=== PATIENT | female | born 1950 | race Caucasian/White ===

== ENCOUNTER 2017-07-17 08:27 | Emergency (ER) | payer OTHER, MEDICARE ==
[~2017-07-17] VITALS: Ht 167.6 cm; Wt 67.1 kg
[2017-07-17] MEDS ORDERED: IV NORMAL SALINE 1000ML BAG 1,000 ML IV SCH (09:06)
[2017-07-17] MEDS ORDERED: OXYMETAZOLINE 0.05% NASAL SPRAY 30ML BOTTLE. NS ONE (09:15)
--- NOTE | 2017-07-17 09:21 | PHYS DOC ---
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 She got up to walk a short distance and she suddenly felt like she had to hold onto the [place]udson. She felt off balance and describes a vertigo-type sensation. She did not have any chest pain, denies shortness of air, she states her heart was not racing. She did have a "slight headache" at the time and she has just a little bit of a headache on top of her head at this time but it is going away. A nursing home aide checked her blood pressure and it was 157/78. Patient states usually her blood pressure is perfectly normal. They also stated that she was red and flushed at the time. Patient also states that yesterday "both arms were tingling". Patient states she had vertigo once before related to an ear condition. She has had some pain, discomfort, decreased hearing, and congestion in her right ear for about a month. She saw her PCP and her ear was flushed, they put her on an antibiotic. She also took Sudafed for a few days which didn't help. She is supposed to follow up with an ENT doctor. She denies recent seasonal allergy symptoms, she said the right side of her nose does run once in a while. She does have some pain and discomfort anterior to her right ear. She does take Tylenol for this occasionally but has not taken any today. Patient is diabetic. She recently was changed from Lantus to Tresiba and has been experiencing some poor control related to that. Her fasting blood sugar this morning was 243. She typically takes Tresiba 28 units at night that she took only 25 last night because she has been having some nighttime lows. Patient typically takes regular insulin 8 units with breakfast, 8-10 units with lunch and 10-12 units with dinner, depending on her carbs. This morning she did not take her morning insulin because when she works, it's hard for her to know whether she will get her lunch on time, and if she doesn't, her blood sugar will get low so she skipped her morning insulin dose. Denies history of [place] or CVA. Review of Systems Review of Systems Constitutional: Denies fever or chills [] HENT: As in history of present illness Respiratory: Denies cough or shortness of breath [] Cardiovascular: Denies chest pain GI: Denies abdominal pain, nausea, vomiting, bloody stools or diarrhea [] Musculoskeletal: Denies back pain or joint pain [] Integument: Denies rash or skin lesions [] Neurologic: As in history of present illness, she had a "slight headache" earlier this morning when the symptoms were bothering her, it is about gone now. She denies focal weakness. Current Medications Current Medications Current Medications Medications (Trade) Dose Ordered Sig/Quinn Start Time Stop Time Status Last Admin Dose Admin Meclizine HCl (Antivert) 25 mg 1X ONCE 07/17/17 10:15 07/17/17 10:16 DC 07/17/17 10:12 25 MG Oxymetazoline HCl (Afrin) 2 spray 1X ONCE 07/17/17 09:15 07/17/17 09:16 DC 07/17/17 09:29 2 SPRAY Sodium Chloride 1,000 ml @ 1,000 mls/hr Q1H 07/17/17 09:06 07/17/17 10:05 DC 07/17/17 09:16 1,000 MLS/HR Allergies Allergies Allergies Coded Allergies Type Severity Reaction Last Updated Verified codeine Allergy Intermediate Nausea, "RPTS EXTREME CRAMPING" 04/25/14 No Physical Exam Physical Exam Constitutional: Well developed, well nourished, no acute distress, non-toxic appearance. Alert, mentating normally, warm and dry. Blood pressure 183/82. HENT: Normocephalic, atraumatic, bilateral external ears normal, nose normal. Right ear: External ear canal is small. There is a normal amount of cerumen present. No redness, swelling, or abnormality of the ear canal. I am able to visualize only a small portion of the TM due to small ear canals and cerumen. That portion appears normal without redness. Eyes: conjunctiva normal, no discharge. [] Neck: Normal range of motion, no stridor. [] Cardiovascular:Heart rate regular rhythm, no murmur [] Lungs & Thorax: Bilateral breath sounds clear to auscultation [] Skin: Warm, dry, no erythema, no rash. [] Extremities: No tenderness, no cyanosis, no clubbing, ROM intact, no edema. [] Neurologic: Alert and oriented X 3, normal motor function, no focal deficits noted. Patient is keenly alert. Fully appropriate. Good historian. Normal speech and normal speech pattern. No facial asymmetry. Lkodmu-[id number] nose normal bilaterally. Heel to tavarez normal bilaterally. Current Patient Data Vital Signs Vital Signs Date Time Temp Pulse Resp B/P (MAP) Pulse Ox O2 Delivery O2 Flow Rate FiO2 07/17/17 10:54 77 16 174/81 (112) Room Air 07/17/17 10:13 97 07/17/17 08:59 98.2 98.2 Lab Values Laboratory Tests Test 07/17/17 08:44 07/17/17 09:15 Glucose (Fingerstick) 332 mg/dL (70-99) H White Blood Count 7.2 x10^3/uL (4.0-11.0) Red Blood Count 4.20 x10^6/uL (3.50-5.40) Hemoglobin 12.9 g/dL (12.0-15.5) Hematocrit 39.9 % (36.0-47.0) Mean Corpuscular Volume 95 fL (79-100) Mean Corpuscular Hemoglobin 31 pg (25-35) Mean Corpuscular Hemoglobin Concent 32 g/dL (31-37) Red Cell Distribution Width 14.0 % (11.5-14.5) Platelet Count 257 x10^3/uL (140-400) Neutrophils (%) (Auto) 62 % (31-73) Lymphocytes (%) (Auto) 27 % (24-48) Monocytes (%) (Auto) 8 % (0-9) Eosinophils (%) (Auto) 2 % (0-3) Basophils (%) (Auto) 1 % (0-3) Neutrophils # (Auto) 4.4 x10^3uL (1.8-7.7) Lymphocytes # (Auto) 2.0 x10^3/uL (1.0-4.8) Monocytes # (Auto) 0.6 x10^3/uL (0.0-1.1) Eosinophils # (Auto) 0.2 x10^3/uL (0.0-0.7) Basophils # (Auto) 0.0 x10^3/uL (0.0-0.2) Sodium Level 137 mmol/L (136-145) Potassium Level 4.4 mmol/L (3.5-5.1) Chloride Level 101 mmol/L (98-107) Carbon Dioxide Level 27 mmol/L (21-32) Anion Gap 9 (6-14) Blood Urea Nitrogen 14 mg/dL (7-20) Creatinine 0.6 mg/dL (0.6-1.0) Estimated GFR (Cockcroft-Gault) 100.3 BUN/Creatinine Ratio 23 (6-20) H Glucose Level 347 mg/dL (70-99) H Calcium Level 9.7 mg/dL (8.5-10.1) Total Bilirubin 0.4 mg/dL (0.2-1.0) Aspartate Amino Transferase (AST) 19 U/L (15-37) Alanine Aminotransferase (ALT) 24 U/L (14-59) Alkaline Phosphatase 141 U/L (46-116) H Total Protein 7.2 g/dL (6.4-8.2) Albumin 3.8 g/dL (3.4-5.0) Albumin/Globulin Ratio 1.1 (1.0-1.7) Laboratory Tests 07/17/17 09:15 Laboratory Tests 07/17/17 09:15 EKG EKG 12-lead EKG read by me. Sinus rhythm. Heart rate 78. There are no acute ST or T wave changes indicative of ischemia or infarction. No STEMI. Normal EKG. 08 44[] Radiology/Procedures Radiology/Procedures [] Course & Med Decision Making Course & Med Decision Making Pertinent Labs and Imaging studies reviewed. (See chart for details) 67-year-old female who works here at [employer] presents to the ED with what sounds like an episode of vertigo. There was initial concern about blood pressure and could this be cardiac. I believe her symptoms sound like peripheral vertigo. I don't believe she is having a CVA. She has no headache. She has no chronic hypertension. Her finger to nose and heel to tavarez testing are normal. She is very alert, appropriate, with normal speech. She has in fact been having some right middle ear complaints. I suspect that she has labyrinthine vertigo. We will treat her with decongestant nasal spray today to see if that makes any difference. She has ENT follow-up planned. However, she is noted to have blood sugar over 300 on her Accu-Chek. For that, we will check some labs and give her a liter of fluids. She is agreeable to that plan. Patient rested comfortably and uneventfully in the ED and got a liter of IV fluids. She remained vertiginous and was given a dose of by mouth meclizine. We discussed use of meclizine at home. The patient did get up to the bathroom with minimal assistance but she still felt dizzy and unsteady. She will be driven home by her . See Instructions for plan. [] Dragon Disclaimer Dragon Disclaimer This electronic medical record was generated, in whole or in part, using a voice recognition dictation system. Departure Departure Impression: Primary Impression: Vertigo, labyrinthine Additional Impression: Hyperglycemia due to type 2 diabetes mellitus Disposition: HOME, SELF-CARE Condition: STABLE Referrals: DARCY NAGEL MD (PCP) Patient Instructions: Vertigo, [id number] Additional Instructions: I believe your symptoms today are vertigo, and probably related to the right ear problems you have had going on. For vertigo, take meclizine one half to one every 6 hours as needed. This may be sedating, do not take when you're going to work or drive. For congestion that may be contributing to the ear problems and vertigo, I recommend that you use the decongestant nasal spray in both nostrils every morning, do not use at bedtime because if you use it around the clock it can cause congestion when you stop using it and also bedtime use can cause you to not be able to sleep. Also, purchase [id number] Flonase nasal steroid spray and use as directed. Use in both nostrils. This may help with inflammation and swelling up inside your nose and sinuses that contributes to problems with your eustachian tube and ear. Scripts Meclizine Hcl (MECLIZINE HCL) 25 Mg Tablet 1 TAB PO PRN TID for vertigo, #30 TAB Prov: GORDO GONSALES MD 07/17/17 Problem Qualifiers GORDO GONSALES MD Jul 17, 2017 09:21
[2017-07-17 09:25] LABS: BASO % 1 % (0-3); EOS % 2 % (0-3); HEMATOCRIT 39.9 % (36.0-47.0); HEMOGLOBIN 12.9 g/dL (12.0-15.5); LYMPH % 27 % (24-48); MEAN CORPUSCULAR HEMOGLOBIN 31 pg (25-35); MEAN CORPUSCULAR HGB CONC 32 g/dL (31-37); MEAN CORPUSCULAR VOLUME 95 fL (79-100); MONO % 8 % (0-9); NEUT % 62 % (31-73); PLATELET COUNT 257 x10^3/uL (140-400); WHITE BLOOD COUNT 7.2 x10^3/uL (4.0-11.0)
--- NOTE | 2017-07-17 09:25 | EKG ---
[facility] [address] [place] [address] Test Date: 2017-07-17 Test Time: 08:44:35 Pat Name: NAYAN MCLEAN Department: Room: Gender: F Group Counselor: : 1950 Requested By: GORDO GONSALES Order Number: [id number] Reading MD: Measurements Intervals [place] Rate: 78 P: 74 DC: 166 QRS: -23 QRSD: 86 T: 56 QT: 374 QTc: 430 Interpretive Statements SINUS RHYTHM LEFT ATRIAL ABNORMALITY LEFTWARD AXIS S1,S2,S3 PATTERN QRS(T) CONTOUR ABNORMALITY CONSISTENT WITH ANTEROSEPTAL INFARCT AGE UNDETERMINED RI6.01 Unconfirmed report No previous ECG available for comparison
[2017-07-17 09:33] LABS: CALCIUM 9.7 mg/dL (8.5-10.1); CREATININE 0.6 mg/dL (0.6-1.0); GFR 100.3; POTASSIUM 4.4 mmol/L (3.5-5.1)
[2017-07-17 09:36] LABS: ALBUMIN 3.8 g/dL (3.4-5.0); ALBUMIN/GLOBULIN RATIO 1.1 (1.0-1.7); TOTAL BILIRUBIN 0.4 mg/dL (0.2-1.0); TOTAL PROTEIN 7.2 g/dL (6.4-8.2)
[2017-07-17] MEDS ORDERED: MECLIZINE HCL 12.5 MG TABLET. PO ONE (10:15)
[2017-07-17] MEDS ORDERED: MECL25TA3 PO (10:50)
[2017-07-17 10:54] VITALS: BP 174/81
== END 2017-07-17 10:54 | disposition home or self-care (01) ==
LOC: ER 08:27
DX: H81.01 Meniere's disease, right ear (principal); E11.65 Type 2 diabetes mellitus with hyperglycemia; E11.40 Type 2 diabetes mellitus with diabetic neuropathy, unspecified; K21.9 Gastro-esophageal reflux disease without esophagitis; Z79.4 Long term (current) use of insulin; Z88.5 Allergy status to narcotic agent
CPT/HCPCS: 36415; 80053; 82962; 85025; 93005; 96360; 99285; J7030; J8597

== ENCOUNTER 2018-05-08 09:52 | Day surgery (SDC) | payer OTHER ==
[2018-05-08] MEDS: IV RINGERS,LACTATED 1000ML 1,000 ML IV (07:00)
[~2018-05-08 09:52] MED LIST: LIDOCAINE 1% PF 2 ML VIAL. ID; ONDANSETRON PF 4 MG/2 ML VIAL. IV; PROCHLORPERAZINE 10 MG/2 ML VIAL. IV; fentaNYL PF VIAL 100 MCG/2 ML VIAL IV
[2018-05-08 10:29] LABS: POC GLUCOSE 336 mg/dL (70-99)
[2018-05-08] MEDS: PROPARACAINE 0.5% OPHTH SOLUTION 15ML BOTTLE. OD (10:40)
[2018-05-08] MEDS: PHENYLEPHRINE 10% OPHTH SOLUTION 5ML BOTTLE. OD ×3 (10:41→10:55)
[2018-05-08] MEDS: CYCLOPENTOLATE 1% OPTH SOLUTION 2ML BOTTLE. OD ×3 (10:42→10:55)
[2018-05-08] MEDS: CIPROFLOXACIN 0.3% OPHTH SOLUTION 5ML BOTTLE. OD (10:43)
[2018-05-08] MEDS: INSULIN ASPART 100 UNIT/ML 10ML VIAL. SQ (10:55)
[2018-05-08] MEDS: LIDOCAINE 2% JELLY 6ML IN APPLICATOR. MM ×2 (10:56→12:27)
[2018-05-08] MEDS ORDERED: MIDAZOLAM HCL/PF 2 MG/2 ML VIAL. (11:10)
[2018-05-08] MEDS: EPINEPHRINE IRR (11:42)
[2018-05-08] MEDS: LIDOCAINE 1% IRR (11:42)
[2018-05-08] MEDS: BUPIVACAINE MPF 0.75% IRR (11:42)
[2018-05-08] MEDS ORDERED: CHONDROITIN-SOD-HYALURONATE 0.5 ML DISP.SYRIN. ×2 (11:42→13:39)
[2018-05-08] MEDS: [UNRECOGNIZED DRUG - OTHER] IRR (11:42)
[2018-05-08 11:49] LABS: POC GLUCOSE 266 mg/dL (70-99)
[2018-05-08] MEDS: CHONDROIT-SOD-HYALURONATE KIT. (11:50)
[2018-05-08] MEDS: CHONDROITIN-SOD-HYALURONATE 0.5 ML DISP.SYRIN. (11:51)
[2018-05-08] MEDS: NEO/POLYMYX/DEXAMETH OPHTH OINTMENT 3.5GM TUBE. (12:37)
[2018-05-08] MEDS: BALANCED SALT IRRIG OPHTH SOLN 15 ML BOTTLE. ×2 (12:43→12:44)
[2018-05-08] MEDS: ACETYLCHOLINE CHLORIDE 1:100 20 MG/2 ML INTRAOCULAR KIT. (13:01)
[2018-05-08 13:31] LABS: POC GLUCOSE 117 mg/dL (70-99)
[2018-05-08] MEDS: fentaNYL PF VIAL 100 MCG/2 ML VIAL IV (13:33)
[2018-05-08] MEDS ORDERED: ACETYLCHOLINE CHLORIDE 1:100 20 MG/2 ML INTRAOCULAR KIT. (13:39)
== END 2018-05-08 14:08 | disposition home or self-care (01) ==
LOC: SURG 09:52
DX: E10.36 Type 1 diabetes mellitus with diabetic cataract (principal); H26.8 Other specified cataract; E10.42 Type 1 diabetes mellitus with diabetic polyneuropathy; E10.352 Type 1 diabetes mellitus with proliferative diabetic retinopathy with traction retinal detachment involving the macula; K21.9 Gastro-esophageal reflux disease without esophagitis; F41.9 Anxiety disorder, unspecified; Z88.5 Allergy status to narcotic agent; M19.90 Unspecified osteoarthritis, unspecified site; E05.00 Thyrotoxicosis with diffuse goiter without thyrotoxic crisis or storm; Z90.721 Acquired absence of ovaries, unilateral; Z90.710 Acquired absence of both cervix and uterus; Z98.890 Other specified postprocedural states; Z79.899 Other long term (current) drug therapy; Z79.4 Long term (current) use of insulin; Z90.79 Acquired absence of other genital organ(s)
CPT/HCPCS: 66982; 82962; C1780; J0171; J0690; J1580; J2250; J3010; J3490

== ENCOUNTER → 2018-05-31 | Outpatient (CLI) | payer OTHER ==
[2018-05-08 13:53] VITALS: BP 151/67
[~2018-05-31] MED LIST changes: +ACET325T9 PO; +GABA-585 PO; +INSU100V31 SQ; +INSU100V8 SQ; -LIDOCAINE 1% PF 2 ML VIAL. ID; +MECL25TA3 PO; +OMEP20TA8 PO; -ONDANSETRON PF 4 MG/2 ML VIAL. IV; -PROCHLORPERAZINE 10 MG/2 ML VIAL. IV; -fentaNYL PF VIAL 100 MCG/2 ML VIAL IV
[2018-05-31 07:31] LABS: ALBUMIN 3.6 g/dL (3.4-5.0); CALCIUM 9.3 mg/dL (8.5-10.1); CHOLESTEROL/HDL RATIO 3.3; CREATININE 0.7 mg/dL (0.6-1.0); GFR 83.7; POTASSIUM 4.1 mmol/L (3.5-5.1); TOTAL BILIRUBIN 0.3 mg/dL (0.2-1.0); TOTAL PROTEIN 7.1 g/dL (6.4-8.2)
[2018-05-31 13:26] LABS: HEMOGLOBIN A1C 9.6 % (4.8-5.6)
== END | disposition home or self-care (01) ==
LOC: LAB 06:37
PROVIDERS: ATTEND Family Medicine
DX: E78.5 Hyperlipidemia, unspecified (principal); E11.65 Type 2 diabetes mellitus with hyperglycemia; R68.89 Other general symptoms and signs; R63.5 Abnormal weight gain; K21.9 Gastro-esophageal reflux disease without esophagitis
CPT/HCPCS: 36415; 80053; 80061; 83036; 84443

== ENCOUNTER 2018-08-13 19:07 | Emergency (ER) | payer OTHER, MEDICARE ==
[~2018-08-13] VITALS: Ht 167.6 cm; Wt 67.1 kg
[2018-08-13] MEDS ORDERED: SULF1TAB24 PO (20:21)
[2018-08-13] MEDS ORDERED: LIDOCAINE 2% 20 ML VIAL. IJ ONE (20:30)
[2018-08-13 20:51] VITALS: BP 164/70
[2018-08-13] MEDS ORDERED: LIDOCAINE WITH 8.4% SOD BICARB 3 ML DISP.SYRIN. INJ ONE (21:00)
--- NOTE | 2018-08-13 21:42 | PHYS DOC ---
Past Medical History Past Medical History: Diabetes-Type II, GERD, Other Additional Past Medical Histor: dm neuropathy Past Surgical History: Hysterectomy, Tonsillectomy Alcohol Use: None Drug Use: None Adult General Chief Complaint Chief Complaint: LOWER EXTREMITY SWELLING HPI HPI Patient is a 68 year old F WHO P/W CC OF SWELLING TO RIGHT THIGH AREA. IT STARTED A BUG BITE TWO MONTHS AGO BUT GOT WORSE TWO DAYS AGO, PAIN INCREASING, TEMP 98 THAT IS HIGH FOR HER, USUALLY RUNS 96. PAIN SEVERE NONRADIATING SHARP WORSE WITH PALPATION HAS NOT TRIED ANYTHING FOR RELIEF. Review of Systems Review of Systems Constitutional: Denies fever or chills [] E Integument: Neurologic: Denies headache, focal weakness or sensory changes [] Endocrine: Denies polyuria or polydipsia [] All other systems were reviewed and found to be within normal limits, except as documented in this note. Current Medications Current Medications Current Medications Medications (Trade) Dose Ordered Sig/Quinn Start Time Stop Time Status Last Admin Dose Admin Lidocaine HCl 10 ml 1X ONCE 08/13/18 20:30 08/13/18 20:31 DC Lidocaine/Sodium Bicarbonate (Buffered Lidocaine 1%) 3 ml 1X ONCE 08/13/18 21:00 08/13/18 21:01 DC 08/13/18 20:59 3 ML Allergies Allergies Allergies Coded Allergies Type Severity Reaction Last Updated Verified codeine Allergy Intermediate Nausea, "RPTS EXTREME CRAMPING" 05/08/18 No morphine Adverse Reaction Intermediate Nausea and Vomiting 05/08/18 Yes Physical Exam Physical Exam Constitutional: Well developed, well nourished, no acute distress, non-toxic appearance. [] HENT: Normocephalic, atraumatic, bilateral external ears normal, oropharynx moist, no oral exudates, nose normal. [] Eyes: PERRLA, EOMI, conjunctiva normal, no discharge. [] Neck: Norml range of motion, no tenderness, supple, no stridor. [] RESP: NORMAL EFFORT NO INCREASED WORK OF BREATHING. Abdomen: soft, no tenderness, no masses, no pulsatile masses. [] Skin: There is a 2 cm abscess with fluctuance tenderness and mild surrounding cellulitis totaling incised proximally 4 cm on the right upper medial thigh. It does not involve the perineum. Extremities: SEE ABOVE. NO STREAKING Neurologic: Alert and oriented X 3, normal motor function, normal sensory function, no focal deficits noted. [] Psychologic: Affect normal, judgement normal, mood anxious[] Current Patient Data Vital Signs Vital Signs Date Time Temp Pulse Resp B/P (MAP) Pulse Ox O2 Delivery O2 Flow Rate FiO2 08/13/18 19:50 98.2 88 14 148/67 (94) 98 Room Air 98.2 EKG EKG [] Radiology/Procedures Radiology/Procedures [] Course & Med Decision Making Course & Med Decision Making Pertinent Labs and Imaging studies reviewed. (See chart for details) []Procedure note: Verbal consent was obtained the area was prepped and draped in the usual sterile fashion lidocaine was used for anesthesia patient tolerated with some difficulty a 1 cm incision was made likely since were explored approximate 4 and also possible was returned. The wound was packed and dressed with sterile gauze and wound care instructions were provided advise follow-up in 3 days for recheck perception for Bactrim was provided patient voiced understanding of instructions Noted blood pressure patient was advised follow-up in 2 weeks with primary doctor. She appeared quite anxious overall the emergency room Dragon Disclaimer Dragon Disclaimer This electronic medical record was generated, in whole or in part, using a voice recognition dictation system. Departure Departure Impression: Primary Impression: Abscess Additional Impression: Elevated blood pressure reading Disposition: 01 HOME, SELF-CARE Condition: STABLE Patient Instructions: Abscess Additional Instructions: GET YOUR BLOOD PRESSURE CHECKED IN TWO WEEKS. Scripts Sulfamethoxazole/Trimethoprim (BACTRIM DS TABLET) 1 Each Tablet 1 TAB PO BID, #14 TAB Prov: MAEVE PETERSON MD 08/13/18 Problem Qualifiers MAEVE PETERSON MD Aug 13, 2018 21:42
== END 2018-08-13 21:35 | disposition home or self-care (01) ==
LOC: ER 19:07
DX: L02.415 Cutaneous abscess of right lower limb (principal); I10 Essential (primary) hypertension; E11.40 Type 2 diabetes mellitus with diabetic neuropathy, unspecified; K21.9 Gastro-esophageal reflux disease without esophagitis; Z90.710 Acquired absence of both cervix and uterus; Z88.5 Allergy status to narcotic agent
CPT/HCPCS: 10060; J2001; 99283-25

== ENCOUNTER → 2018-08-22 | Outpatient (CLI) | payer OTHER, MEDICARE ==
[2018-08-13 20:51] VITALS: BP 164/70
[~2018-08-22] MED LIST changes: +SULF1TAB24 PO
== END | disposition home or self-care (01) ==
LOC: LAB 08:31
PROVIDERS: ATTEND Nurse Practitioner Family
DX: E07.9 Disorder of thyroid, unspecified (principal); R22.1 Localized swelling, mass and lump, neck
CPT/HCPCS: 36415; 84436; 84443

== ENCOUNTER → 2018-11-15 | Outpatient (CLI) | payer OTHER, MEDICARE ==
[2018-11-15 08:53] LABS: ALBUMIN 3.6 g/dL (3.4-5.0); ALBUMIN/GLOBULIN RATIO 1.1 (1.0-1.7); CALCIUM 9.4 mg/dL (8.5-10.1); CREATININE 0.7 mg/dL (0.6-1.0); GFR 83.7; POTASSIUM 4.2 mmol/L (3.5-5.1); TOTAL BILIRUBIN 0.3 mg/dL (0.2-1.0); TOTAL PROTEIN 6.8 g/dL (6.4-8.2)
[2018-11-15 08:54] LABS: CHOLESTEROL/HDL RATIO 3.2
[2018-11-15 20:12] LABS: HEMOGLOBIN A1C 9.4 % (4.8-5.6)
== END | disposition home or self-care (01) ==
LOC: LAB 08:02
PROVIDERS: ATTEND Family Medicine
DX: E11.65 Type 2 diabetes mellitus with hyperglycemia (principal); E78.5 Hyperlipidemia, unspecified; E11.49 Type 2 diabetes mellitus with other diabetic neurological complication
CPT/HCPCS: 36415; 80053; 80061; 83036; 84443

== ENCOUNTER → 2018-12-16 | Outpatient (CLI) | payer OTHER, MEDICARE ==
--- NOTE | 2018-12-16 16:20 | RAD ---
EXAM: US medial right thigh DATE: 12/16/2018 3:16 PM COMPARISON: None INDICATION: DX: Lump Upper Inner Right Thigh where previous abscess was drained TECHNIQUE: Longitudinal and transverse imaging with intermittent Doppler sampling completed with attention to medial right thigh FINDINGS/ IMPRESSION: At the site of palpable abnormality, no discrete fluid collection is seen. Minimal soft tissue irregularity is seen within the subcutaneous tissues measuring up to 3 mm, possibly focal scarring. Mild posterior acoustic shadowing suggests small focus of calcification. No drainable fluid collection. Electronically signed by: Rinku Corrales MD (12/16/2018 4:17 PM) [facility]
--- NOTE | 2018-12-16 16:43 | RAD ---
CLINICAL HISTORY: DX: Throat fullness; Hoarseness COMPARISON: None available. TECHNIQUE: Ultrasound examination of the thyroid gland was performed FINDINGS: The right thyroid measures 5.4 x 1.8 x 1.5 cm. The left thyroid measures 3.9 x 1.2 x 1.2 cm. The isthmus measures 0.3 cm in thickness. No definite dominant nodule is seen. Several bilateral hypoechoic nodules measure <5 mm. IMPRESSION: Mild enlargement of the right thyroid. Symmetric vascularity. No dominant thyroid nodule is seen although several hypoechoic thyroid nodules measuring <5 mm. Electronically signed by: Rinku Corrales MD (12/16/2018 4:40 PM) [facility]
== END | disposition home or self-care (01) ==
LOC: US 15:06
PROVIDERS: ATTEND Nurse Practitioner Family
DX: L02.415 Cutaneous abscess of right lower limb (principal); E04.9 Nontoxic goiter, unspecified
CPT/HCPCS: 76536; 76881

== ENCOUNTER → 2019-08-22 | Outpatient (CLI) | payer OTHER, MEDICARE ==
[2019-08-22 08:16] LABS: BASO % 0 % (0-3); EOS # 0.1 x10^3/uL (0.0-0.7); EOS % 1 % (0-3); HEMATOCRIT 35.9 % (36.0-47.0); HEMOGLOBIN 12.1 g/dL (12.0-15.5); LYMPH # 1.7 x10^3/uL (1.0-4.8); LYMPH % 21 % (24-48); MEAN CORPUSCULAR HEMOGLOBIN 32 pg (25-35); MEAN CORPUSCULAR HGB CONC 34 g/dL (31-37); MEAN CORPUSCULAR VOLUME 94 fL (79-100); MONO # 0.6 x10^3/uL (0.0-1.1); MONO % 7 % (0-9); NEUT # 5.7 x10^3/uL (1.8-7.7); NEUT % 71 % (31-73); PLATELET COUNT 282 x10^3/uL (140-400); RED BLOOD COUNT 3.84 x10^6/uL (3.50-5.40); RED CELL DISTRIBUTION WIDTH 14.1 % (11.5-14.5)
[2019-08-22 08:34] LABS: ALBUMIN 3.7 g/dL (3.4-5.0); ALBUMIN/GLOBULIN RATIO 1.2 (1.0-1.7); CALCIUM 9.1 mg/dL (8.5-10.1); CREATININE 0.7 mg/dL (0.6-1.0); GFR 83.5; POTASSIUM 4.6 mmol/L (3.5-5.1); TOTAL BILIRUBIN 0.3 mg/dL (0.2-1.0); TOTAL PROTEIN 6.9 g/dL (6.4-8.2)
[2019-08-22 18:09] LABS: CREAT RD UR 94.9 mg/dL (Not Estab.); MICRO CREAT RATIO 12.1 mg/g creat (0.0-30.0); MICROALB RD UR 11.5 ug/mL (Not Estab.)
[2019-08-23 01:08] LABS: HEMOGLOBIN A1C 9.2 % (4.8-5.6)
== END | disposition home or self-care (01) ==
LOC: LAB 06:41
PROVIDERS: ATTEND Nurse Practitioner Family
DX: Z00.00 Encounter for general adult medical examination without abnormal findings (principal); E11.65 Type 2 diabetes mellitus with hyperglycemia; E78.5 Hyperlipidemia, unspecified; K21.9 Gastro-esophageal reflux disease without esophagitis
CPT/HCPCS: 36415; 80053; 80061; 82043; 82570; 83036; 84436; 84443; 85025; 86705; 86709; 86803; 87340

== ENCOUNTER → 2019-09-01 | Outpatient (CLI) | payer OTHER, MEDICARE ==
--- NOTE | 2019-09-01 13:17 | KCIC ---
EXAM: Dual energy x-ray absorptiometry (DEXA). HISTORY: Post menopausal screening. TECHNIQUE: Dual energy x-ray absorptiometry of the lumbar spine and the left hip was performed. T-score of average bone mineral density based was calculated based on standard deviations above or below the expected young adult normal value. Diagnostic definitions were established by the World Health Organization. FINDINGS: The average bone mineral density associated with L1-L4 is 1.205 g/cm^2, corresponding with a T-score of 1.5. The average total bone mineral density associated with the left hip is 0.830 g/cm^2, corresponding with a T-score of -0.9. No comparison examinations are available. Refer to the worksheets for full detail. IMPRESSION: 1. Normal. Average bone mineral density yields a T-score of -1.0 or greater. Fracture risk is low. Electronically signed by: Tammy Hope MD (09/01/2019 1:15 PM) [facility]
--- NOTE | 2019-09-01 16:18 | KCIC ---
EXAM: Thyroid ultrasound HISTORY: Thyroid nodule. COMPARISON: 12/16/2018. FINDINGS: Sonographic evaluation of the thyroid gland was performed. The right lobe measures 5.4 x 1.8 x 1.5 cm. A 5 x 4 x 3 mm hypoechoic circumscribed nodule has no internal flow and is likely a small cyst. The left lobe measures 3.9 x 1.2 x 1.2 cm. A similar 2 mm nodule on the left is also likely a benign cyst. The isthmus measures 3 mm. IMPRESSION: 1. Small bilateral thyroid nodules measure 5 mm or less and are likely benign. Electronically signed by: Tammy Hope MD (09/01/2019 4:15 PM) [facility]
--- NOTE | 2019-09-01 19:17 | KCIC ---
Bilateral digital screening mammograms: Reason for examination: Routine baseline screening. Interpretation was made with the benefit of CAD. The skin and nipples show no abnormalities. No abnormal axillary lymph nodes are seen. The breast parenchyma shows scattered fibroglandular density. (Breast density: Category B.) There are no dominant masses, suspicious calcifications or architectural distortions. Impression: No evidence of malignancy. Recommend routine screening. BI-RADS Category 1: Negative. "Our facility is accredited by the [employer] Mammography Program." This patient's information has been entered into a reminder system for the patient to be notified with the results of her examination and a target date for the next mammogram. Electronically signed by: Sheri Aguilar MD (09/01/2019 7:14 PM) [id number]
== END | disposition home or self-care (01) ==
LOC: KCIC US 12:18
PROVIDERS: ATTEND Family Medicine
DX: Z12.31 Encounter for screening mammogram for malignant neoplasm of breast (principal); Z13.820 Encounter for screening for osteoporosis; E04.2 Nontoxic multinodular goiter; N95.9 Unspecified menopausal and perimenopausal disorder
CPT/HCPCS: 76536; 77063; 77067; 77080

== ENCOUNTER → 2020-04-22 | Outpatient (CLI) | payer OTHER, MEDICARE ==
[~2020-04-22] MED LIST changes: +MECL-75 PO; -MECL25TA3 PO
--- NOTE | 2020-04-22 15:58 | KCIC ---
Thyroid ultrasound 04/22/2020 CLINICAL HISTORY: History of thyroid nodules. TECHNIQUE: A real-time ultrasound examination of the thyroid gland was performed. Multiple images were obtained. FINDINGS: The thyroid gland is mildly enlarged, right greater than left. The right lobe of thyroid gland measures 5.2 x 1.9 x 1.5 cm in longitudinal, transverse, and AP dimensions. The left lobe of the thyroid gland measures 4.0 x 1.3 x 1.1 cm in size. The isthmus measures 2.3 mm in thickness. A hypoechoic nodule seen within the mid aspect of the right lobe of thyroid gland. This measures 5 mm in greatest diameter. A 3 mm hypoechoic oval-shaped nodule is seen involving the inferior aspect of the left lobe of thyroid gland. These are unchanged. No new nodule is seen. IMPRESSION: Stable sonographic appearance of the small nodules involving the thyroid gland. No new nodule is seen. Electronically signed by: Herminio Armando MD (04/22/2020 3:55 PM) [id number]
== END | disposition home or self-care (01) ==
LOC: KCIC US 12:51
PROVIDERS: ATTEND Family Medicine
DX: E04.2 Nontoxic multinodular goiter (principal)
CPT/HCPCS: 76536

== ENCOUNTER 2021-01-27 10:29 | Emergency (ER) | payer MEDICARE, OTHER ==
[~2021-01-27] VITALS: Ht 167.6 cm; Wt 68.0 kg
[2021-01-27 11:06] VITALS: BP 151/84
--- NOTE | 2021-01-27 12:17 | RAD ---
EXAM: XR KNEE 4 VIEWS WITH PATELLA_RT, XR EXAM OF ANKLE_RIGHT 3VIEWS, XR RT TIBIA+FIBULA 01/27/2021 11:23 AM CLINICAL INDICATION: Fell Leonor, pain to knee and ankle COMPARISON: None TECHNIQUE: 2 views of the right tibia and fibula, 3 views of the right ankle, 3 views of the right k nee FINDINGS: Right knee: There is a proximal fibular diaphyseal fracture. No other fracture. Alignment is normal. Small joint effusion. Mild prepatellar soft tissue swelling. Right tibia and fibula: Minimally displaced proximal fibular shaft fracture. No other fracture or mal alignment. Mild diffuse soft tissue swelling. Right ankle: No acute fracture. Alignment is normal. Ankle mortise is symmetric and talar dome is int act. Mild diffuse soft tissue swelling. IMPRESSION: 1. Proximal fibular shaft fracture. 2. No fracture of the right knee or right ankle. Electronically signed by: Rosalva Maharaj MD (01/27/2021 12:14 PM) [id number]
--- NOTE | 2021-01-27 13:38 | PHYS DOC ---
Past Medical History Past Medical History: Diabetes-Type II, GERD, Other Additional Past Medical Histor: dm neuropathy Past Surgical History: Hysterectomy, Tonsillectomy Smoking Status: Never Smoker Alcohol Use: None Drug Use: None General Adult EDM: Chief Complaint: MECHANICAL FALL HPI: HPI: Patient is a 70 year old female with history of diabetes type 2 who presents today complaining of 7 out of 10 right knee pain right tib-fib pain and right ankle pain, symptoms began 3 days ago after she fell getting out of bed. She states she stepped down wrong and her knee buckled up. Patient denies any loss of consciousness, denies hitting her head on the ground. She states the pain is severe on weightbearing otherwise on elevation the pain is not as bad. Describes the pain as sharp and intermittent. Review of Systems: Review of Systems: Constitutional: Denies fever or chills. [] Musculoskeletal: Reports right knee pain, right tib-fib pain, right ankle pain. Denies back pain or joint pain. [] Integument: Denies rash. [] Neurologic: Denies headache, focal weakness or sensory changes. [] Psychiatric: Denies depression or anxiety. [] Heart Score: C/O Chest Pain: N/A Risk Factors: Risk Factors: DM, Current or recent (<one month) smoker, HTN, HLP, family history of CAD, obesity. Risk Scores: Score 0 - 3: 2.5% MACE over next 6 weeks - Discharge Home Score 4 - 6: 20.3% MACE over next 6 weeks - Admit for Clinical Observation Score 7 - 10: 72.7% MACE over next 6 weeks - Early Invasive Strategies Allergies: Allergies: Allergies Coded Allergies Type Severity Reaction Last Updated Verified codeine Allergy Intermediate Nausea, "RPTS EXTREME CRAMPING" 05/08/18 No morphine Adverse Reaction Intermediate Nausea and Vomiting 05/08/18 Yes Physical Exam: PE: Constitutional: Well developed, well nourished, no acute distress, non-toxic appearance. [] Skin: Warm, dry, no erythema, no rash. [] Back: No tenderness, no CVA tenderness. [] Extremities: right lower extremity with no obvious deformity, tenderness on palpation of the right proximal tavarez especially lateral aspect, limited range of motion to the right knee especially extension due to pain. Full range of motion to the right ankle and foot. +2 right pedal pulse. Cap refill less than 2 seconds to right toes. Neurologic: Alert and oriented X 3, normal motor function, normal sensory function, no focal deficits noted. [] Psychologic: Affect normal, judgement normal, mood normal. [] Current Patient Data: Vital Signs: Vital Signs Date Time Temp Pulse Resp B/P (MAP) Pulse Ox O2 Delivery O2 Flow Rate FiO2 01/27/21 11:06 98.2 106 18 151/84 (106) 99 Room Air 98.2 EKG: EKG: [] Radiology/Procedures: Radiology/Procedures: []PROCEDURE: TIBIA FIBULA RIGHT EXAM: XR KNEE 4 VIEWS WITH PATELLA_RT, XR EXAM OF ANKLE_RIGHT 3VIEWS, XR RT TIBIA+FIBULA 01/27/2021 11:23 AM CLINICAL INDICATION: Fell Sunday, pain to knee and ankle COMPARISON: None TECHNIQUE: 2 views of the right tibia and fibula, 3 views of the right ankle, 3 views of the right knee FINDINGS: Right knee: There is a proximal fibular diaphyseal fracture. No other fracture. Alignment is normal. Small joint effusion. Mild prepatellar soft tissue swelling. Right tibia and fibula: Minimally displaced proximal fibular shaft fracture. No other fracture or malalignment. Mild diffuse soft tissue swelling. Right ankle: No acute fracture. Alignment is normal. Ankle mortise is symmetric and talar dome is intact. Mild diffuse soft tissue swelling. IMPRESSION: 1. Proximal fibular shaft fracture. 2. No fracture of the right knee or right ankle. Electronically signed by: Rosalva Maharaj MD (01/27/2021 12:14 PM) [id number] DICTATED and SIGNED BY: ROSALVA MAHARAJ MD DATE: 01/27/21 [id number] 0 Course & Med Decision Making: Course & Med Decision Making Pertinent Labs and Imaging studies reviewed. (See chart for details) This is a 70-year-old female patient presented to the ED today complaining of right knee pain, right tib-fib pain, right ankle pain, patient reports falling down 3 days ago. Right knee x-rays, right ankle x-rays are negative for any acute findings, tib-fib x-rays of the right were noted for proximal fibular shaft fracture. Patient was placed in a posterior leg splint by the floor technician, neurovascular exam done by me is intact. Ice elevation encouraged. She refused crutches. She will call Dr. Garcia today and set up a follow-up appointment. Stephen Disclaimer: Stephen Disclaimer: This electronic medical record was generated, in whole or in part, using a voice recognition dictation system. Departure Departure Impression: Primary Impression: Fall Qualified Codes: W19.XXXA - Unspecified fall, initial encounter Additional Impression: Right fibular fracture Qualified Codes: S82.811A - Torus fracture of upper end of right fibula, initial encounter for closed fracture Disposition: HOME / SELF CARE / HOMELESS Condition: STABLE Referrals: BERNADETTE ROSEN MD (PCP) ROBIN GARCIA MD call his office and set up a follow up appointment Patient Instructions: Fibular Fracture with [facility] Additional Instructions: You were seen for right lower extremity pain, you were noted to have right fibula fracture. Try to ice and elevate the extremity. Please contact Dr. Garcia and set up a follow-up appointment as soon as possible SHERMAN CISNEROS APRN Jan 27, 2021 13:38
== END 2021-01-27 13:57 | disposition home or self-care (01) ==
LOC: ER 10:29
DX: S82.811A Torus fracture of upper end of right fibula, initial encounter for closed fracture (principal); M25.561 Pain in right knee; K21.9 Gastro-esophageal reflux disease without esophagitis; E11.40 Type 2 diabetes mellitus with diabetic neuropathy, unspecified; Z90.710 Acquired absence of both cervix and uterus; Z88.6 Allergy status to analgesic agent; W06.XXXA Fall from bed, initial encounter; Y93.89 Activity, other specified; Y92.89 Other specified places as the place of occurrence of the external cause; Y99.8 Other external cause status
CPT/HCPCS: 29505; 73564; 73590; 73610; 99284

== ENCOUNTER → 2021-05-19 | Outpatient (CLI) | payer MEDICARE ==
--- NOTE | 2021-05-19 11:08 | KCIC ---
EXAM: Thyroid sonogram. HISTORY: Thyroid nodule. TECHNIQUE: Sonographic imaging of the thyroid was performed. COMPARISON: 04/22/2020. FINDINGS: The right there are lobe measures 5.0 x 1.8 x 1.4 cm. The left thyroid lobe measures 3.8 x 1.3 x 1.0 cm. The thyroid isthmus measures 2.2 mm. The thyroid parenchyma is diffusely heterogeneous. There is a solid-appearing circumscribed hypoechoic nodule within the mid right thyroid lobe measurin g 6 x 5 x 4 mm. There is a suspected mixed cystic and solid hypoechoic lesion within the inferior lef t thyroid lobe measuring 4 x 3 x 3 mm. IMPRESSION: 1. Minimal interval increase in a 6 mm hypoechoic nodule within the mid right thyroid lobe, allowing for differences in measurement technique. TI-RADS Category 4. Follow up of category 4 nodules is not typically recommended if smaller than 1.5 cm. However, annual follow up can be continued if there is clinical concern. 2. Stable 4 mm hypoechoic lesion within the inferior left thyroid lobe. TI-RADS Category 3. The appea xiang and stamilty favor benignity. 3. Slightly heterogeneous thyroid parenchyma. The thyroid is normal in size. Electronically signed by: Carmen Ogden MD (05/19/2021 11:05 AM) [id number]
== END ==
LOC: KCIC US 09:26
PROVIDERS: ATTEND Family Medicine
DX: E04.2 Nontoxic multinodular goiter (principal); E07.89 Other specified disorders of thyroid
CPT/HCPCS: 76536